=== PATIENT | female | born 1960 | race African-American/Black ===

== ENCOUNTER 2020-03-25 20:13 | Emergency (ER) | payer OTHER ==
[~2020-03-25] VITALS: Ht 167.6 cm; Wt 50.8 kg
[2020-03-25 20:24] VITALS: BP 155/93
--- NOTE | 2020-03-25 20:24 | NUR ---
ED Nurse Note: Patient walked in to ED c/o abscess and pain to her left upper thigh x1 week. Per pt, she was bitten by a spider and it has been draining. Pt also reports that there is a poison going through her body and a possible tapeworm is causing her weigh loss. Pt AAOx4, verbally responsive. VSS.
[2020-03-25] MEDS ORDERED: BACTRIM DS TAB1 EAC1 ORAL (20:37)
[2020-03-25] MEDS ORDERED: CLOTRIMAZOLE15 GM TOPIC (20:37)
[2020-03-25] MEDS ORDERED: Lidocaine 1% 10mg/ml/EPI 0.01mg/ml 30ml INJ ONE (20:57)
--- NOTE | 2020-03-25 20:57 | Emergency Room Report ---
History of Present Illness General Chief Complaint: Skin Rash/Abscess Source: Patient Present Illness HPI Disclaimer: Please note that this report is being documented using [employer] technology. This can lead to erroneous entry secondary to incorrect interpretation by the dictating instrument. HPI: 59-year-old female presents for evaluation of bug bite on her left upper thigh. Just below the gluteal crease. Thinks it was a spider 1 week ago. Has been draining. No significant bleeding. No fever no chills. She is also complaining of possible ringworm infection over her abdomen. Noted is a raised border of rash around the umbilicus intermittently over the past few weeks. Not itchy, no scaling, no weeping, no skin breakdown or ulcerations otherwise. She has an appointment to follow with her doctor in 3 days to discuss this and other ongoing medical issues including recent weight loss and concern over tapeworms. She denies any vomiting, diarrhea, abdominal pain, bloody stools or other changes in her bowel habits. Eating and drinking at baseline. No other complaints noted. PMH: Reviewed PSH: Reviewed Allergies: Reviewed Social Hx: Reviewed Allergies: Coded Allergies: No Known Allergies (Unverified , 03/25/20) COVID-19 Screening Contact w/high risk pt: No Experienced COVID-19 symptoms?: No COVID-19 Testing performed HEAD MIXER: No Patient History Last Menstrual Period: n/a Nursing Documentation-PMH Past Medical History: No Stated History Review of Systems All Other Systems: negative except mentioned in HPI Physical Exam Vital Signs Date Time Temp Pulse Resp B/P (MAP) Pulse Ox O2 Delivery O2 Flow Rate FiO2 03/25/20 20:17 98.2 89 18 155/93 (113) 95 Room Air General: Awake and alert, no acute distress HEENT: NC/AT. EOMI. Resp: Normal work of breathing Skin: There is a 2 x 2 centimeter circular round indurated and warm erythematous region just below the gluteal fold of the left buttocks. Active purulent drainage through a hole approximately 8.5 cm across. Tender to palpation. No bleeding. Small erythematous macules with raised edges and mild scaling over the abdomen. None bigger than 1 cm across. MSK: Normal tone and bulk. Moving all extremities. No obvious deformity. Neuro: Awake and alert. Mentating appropriately Procedures Incision and Drainage Incision and Drainage : Consent: Emergent I & D Procedure: betadine prep Wound Location: other - Left thigh Irrigated w/ Saline (ccs): 50 Anesthesia: 1% Lidocaine, Lidocaine w/ Epi Volume Anesthetic (ccs): 3 Patient Tolerated: Well Complications: None Medical Decision Making Diagnostic Impression: Primary Impression: Abscess Additional Impression: Tinea corporis ER Course 59-year-old female presents for evaluation of possible bug light and abscess over the left upper thigh. Area is actively draining through a sufficiently large hole. I was able to anesthetize the region and irrigated under pressure as well as break up loculations with a Rosalind clamp and express additional purulent material. She tolerated procedure well with no bleeding. No additional incision was required. Patient was started on Bactrim to treat the surrounding cellulitis. Will also prescribe Lotrimin cream for possible tinea infection. She will be discharged to follow-up with her PMD at her scheduled appointment to discuss this and other ongoing chronic conditions. Does not require acute labs or imaging at this time. Patient stable for outpatient follow-up. We discussed return precautions. She understands and agrees with this treatment plan. Last Vital Signs Date Time Temp Pulse Resp B/P (MAP) Pulse Ox O2 Delivery O2 Flow Rate FiO2 03/25/20 20:24 98.2 85 18 155/93 95 Room Air Disposition: HOME, SELF-CARE Condition: Stable Scripts Clotrimazole* (LOTRIMIN*) 15 Gm Cream..g. 1 APPLIC TOPIC TWICE A DAY, #15 GM Prov: Jessee Barahona MD 03/25/20 Trimethoprim/Sulfamethoxazole 160/800* (BACTRIM DS TABLET*) 1 Each Tablet 1 TAB ORAL Q12H, #14 TAB 0 Refills Prov: Jessee Barahona MD 03/25/20 Referrals: [facility] Patient Instructions: Abscess Additional Instructions: Please follow-up with your primary care doctor in the next 1 to 3 days to discuss this emergency department visit and for reevaluation. If you have any new or worsening symptoms please return to the emergency department for reevaluation. Please note that this report is being documented using [employer] technology. This can lead to erroneous entry secondary to incorrect interpretation by the dictating instrument. Jessee Barahona MD Mar 25, 2020 20:57
[2020-03-25] MEDS ORDERED: Lidocaine 1% 10mg/ml/Epi 0.005mg/ml 30ml vial INJ ONE (20:58)
[2020-03-25] MEDS ORDERED: Lidocaine 1% MPF 10mg/ml 5ml INJ ONE (21:00)
[2020-03-25 21:18] VITALS: BP 136/82
--- NOTE | 2020-03-25 21:18 | NUR ---
ED Nurse Note: Pt cleared by ERMD for discharge. DC instructions/prescription was given and explained to pt and verbalized understanding of teachings. All medical deviecs such as ID band removed. Pt is AAO x4, ambulatory and left with all personal belongings.
== END 2020-03-25 21:18 | disposition home or self-care (01) ==
LOC: EMR 20:49
DX: L02.416 Cutaneous abscess of left lower limb (principal); B35.4 Tinea corporis; R21 Rash and other nonspecific skin eruption
CPT/HCPCS: 10060; Z7502; 99282